=== PATIENT | male | born 1965 | race Hispanic/Latino ===

== ENCOUNTER 2017-11-04 05:55 | Day surgery (SDC) | payer OTHER ==
[2017-11-04] MEDS ORDERED: NACL 0.9% 1000 ML 1,000 ML ONE (07:06)
[2017-11-04] MEDS ORDERED: WATER FOR IRRIG STERILE IR ONE (07:24)
[2017-11-04] MEDS ORDERED: WATER FOR IRRIG STERILE ONE (07:25)
[2017-11-04] MEDS ORDERED: DIPRIVAN 10 MG/ML IV ONE ×2 (07:39)
[2017-11-04] MEDS ORDERED: NACL 0.9% 1000 ML 1,000 ML IV SCH (08:00)
--- NOTE | 2017-11-04 08:06 | Anesthesia Consultation ---
Anesthesia Consult and Med Hx Date of service: 11/04/17 - Airway Anesthetic Teeth Evaluation: Poor (loose left upper) ROM Head & Neck: Adequate Mental/Hyoid Distance: Adequate Mallampati Class: Class II Intubation Access Assessment: Probably Good - Pulmonary Exam CTA: Yes - Cardiac Exam Cardiac Exam: RRR - Pre-Operative Health Status ASA Pre-Surgery Classification: ASA3 Proposed Anesthetic Plan: MAC - Pulmonary Hx Smoking: Yes Hx Asthma: Yes COPD: Yes - Cardiovascular System Hx Coronary Artery Disease: Yes Hx Heart Attack/AMI: Yes (x3) Hx Angina: No Hx Percutaneous Transluminal Coronary Angioplasty (PTCA): Yes (2015) - Gastrointestinal Hx Ulcer: Yes
--- NOTE | 2017-11-04 08:06 | Anesthesia Day of Surgery ---
Anesthesia Day of Surgery - Day of Surgery Patient Examined: Yes Patient H&P Reviewed: Yes Patient is NPO: Yes
--- NOTE | 2017-11-04 08:09 | Short Stay Summary ---
Short Stay Documentation - Allergies and Medications Current Medications: Allergies banana Allergy (Verified 11/04/17 07:23) FEEL LIKE HE IS HAVING A HEART ATTACK Home Medications Medication Instructions Recorded Confirmed Last Taken Type ALBUTEROL NEB's 2 puff INHALATION Q6H PRN 07/07/17 07/07/17 Unknown History Adult Low Dose Aspirin EC 81 mg PO DAILY 07/07/17 07/07/17 Unknown History Flomax 0.4 mg PO DAILY 07/07/17 07/07/17 Unknown History Lexapro 1 tab PO DAILY 07/07/17 07/07/17 Unknown History Lipitor 1 tab PO DAILY 07/07/17 07/07/17 Unknown History Metoprolol 1 tab PO DAILY 07/07/17 07/07/17 Unknown History Plavix 75 mg PO DAILY 07/07/17 07/07/17 Unknown History Protonix TAB 1 tab PO DAILY 07/07/17 07/07/17 Unknown History Spiriva 18 mcg INHALATION DAILY 07/07/17 07/07/17 Unknown History Active Medications Sodium Chloride (Nacl 0.9% 1000 Ml) 1,000 mls @ 50 mls/hr IV DIRECT NEGRITA - Brief post op/procedure progress note Date of procedure: 11/04/17 Pre-op diagnosis: Colon cancer screening Post-op diagnosis: same (1. Colonoscopy aborted due to a poor prep 2. Diverticulosis coli 3. Internal hemorrhoids) Procedure: Colonoscopy aborted due to a poor prep Anesthesia: MAC Findings: as above Surgeon: DIONE NEWMAN Estimated blood loss: none Pathology: none Condition: stable - Disposition Condition at discharge: Stable Disposition: [id number]-01 TO HOME OR SELFCARE Short Stay Discharge Plan Follow up with: KEEGAN LANCASTER MD [Other] - 7 Days
[2017-11-04 08:25] VITALS: BP 115/74
== END 2017-11-04 05:56 | disposition home or self-care (01) ==
LOC: GIO 05:55
PROVIDERS: ATTEND Internal Medicine Gastroenterology
DX: Z12.11 Encounter for screening for malignant neoplasm of colon (principal); K64.0 First degree hemorrhoids; K21.9 Gastro-esophageal reflux disease without esophagitis; K57.30 Diverticulosis of large intestine without perforation or abscess without bleeding; J45.909 Unspecified asthma, uncomplicated; I25.2 Old myocardial infarction; F17.210 Nicotine dependence, cigarettes, uncomplicated; Z98.61 Coronary angioplasty status
CPT/HCPCS: 45378; J2704; J7030